=== PATIENT | female | born 1990 | race Caucasian/White ===

== ENCOUNTER 2018-07-02 07:28 | Emergency (ER) | payer SELFPAY ==
[~2018-07-02] VITALS: Ht 167.6 cm; Wt 128.0 kg
[2018-07-02] MEDS ORDERED: LACTULOSE 20G/30ML UDC PO ONE (09:00)
[2018-07-02] MEDS ORDERED: ONDANSETRON HCL 4MG/2ML INJ IV STA (09:00)
[2018-07-02] MEDS ORDERED: SODIUM CHLORIDE 0.9% 1,000 ML IV ONE (09:00)
[2018-07-02 09:21] LABS: EOSINOPHILS % 1.1 % (0.0-5.0); HEMATOCRIT. 39.8 % (36.0-48.0); LYMPHOCYTES % 27.5 % (20.0-50.0); MEAN CORPUSCULAR HEMOGLOBIN 29.3 pg (28.0-32.0); MEAN CORPUSCULAR VOLUME 89.6 fL (81.0-99.0); MEAN PLATELET VOLUME 8.5 fl (7.4-10.4); NEUTROPHILS % 65.4 % (40.0-76.0); PLATELET 322 x1000/uL (130-400); RED BLOOD CELL COUNT 4.45 mill/uL (4.2-5.4); RED CELL DISTRIBUTION WIDTH 14.7 % (11.6-14.6)
[2018-07-02 09:22] LABS: CHLORIDE 108 mEq/L (98-107)
[2018-07-02 09:23] LABS: INR 1.1; PROTHROMBIN TIME 10.9 sec (9.6-11.0)
[2018-07-02 10:37] VITALS: BP 128/51
== END 2018-07-02 11:06 | disposition home or self-care (01) ==
LOC: ER 07:28
DX: K58.1 Irritable bowel syndrome with constipation (principal); R42 Dizziness and giddiness; R41.0 Disorientation, unspecified; E11.9 Type 2 diabetes mellitus without complications; R03.0 Elevated blood-pressure reading, without diagnosis of hypertension; Z79.84 Long term (current) use of oral hypoglycemic drugs
CPT/HCPCS: 36415; 80053; 82962; 83690; 85025; 85610; 96361; 96374; 99283; J2405; J7030

== ENCOUNTER 2022-05-07 01:33 | Emergency (ER) | payer SELFPAY ==
[~2022-05-07] VITALS: Ht 167.6 cm; Wt 117.4 kg
[2022-05-07 01:40] VITALS: BP 174/88
[2022-05-07] MEDS ORDERED: BACITRACIN ZINC OINT UDPKT TOP ONE (03:15)
[2022-05-07] MEDS ORDERED: IBUPROFEN 600MG TABLET PO ONE (03:15)
[2022-05-07] MEDS ORDERED: NAPR-681 PO (04:00)
[2022-05-07] MEDS ORDERED: BO1 TP (04:00)
[2022-05-07] MEDS ORDERED: AMOX1TAB16 PO (04:00)
== END 2022-05-07 04:26 | disposition home or self-care (01) ==
LOC: ER 01:33
DX: S61.259A Open bite of unspecified finger without damage to nail, initial encounter (principal); S50.811A Abrasion of right forearm, initial encounter; E11.9 Type 2 diabetes mellitus without complications; Z90.710 Acquired absence of both cervix and uterus; W55.01XA Bitten by cat, initial encounter; Y93.89 Activity, other specified; Y92.89 Other specified places as the place of occurrence of the external cause; Y99.8 Other external cause status
CPT/HCPCS: 99283; Z7610